=== PATIENT | male | born 1990 | race African-American/Black ===

== ENCOUNTER 2023-02-22 11:01 | Emergency (ER) | payer SELFPAY ==
[~2023-02-22] VITALS: Ht 170.2 cm; Wt 65.0 kg
[2023-02-22 11:09] VITALS: BP 103/66; PULSE 59; RESP 19; TEMP 98.6; O2SAT 100
== END 2023-02-22 15:02 | disposition home or self-care (01) ==
LOC: ER 11:01
DX: R10.9 Unspecified abdominal pain (principal); Z53.21 Procedure and treatment not carried out due to patient leaving prior to being seen by health care provider
CPT/HCPCS: 99281